=== PATIENT | male | born 1950 | race Caucasian/White ===

== ENCOUNTER 2020-08-06 01:31 | Outpatient (CLI) | payer MEDICARE, OTHER, SELFPAY ==
[2020-08-06 08:41] LABS: Abs Immature Grans 0.04 10^3/uL (0.0-0.06); Absolute Basophil Count 0.02 10^3/uL (0.0-0.2); Absolute Eosinophil Count 0.09 10^3/uL (0.0-0.7); Absolute Lymphocyte Count 1.24 10^3/uL (1.2-3.4); Absolute Monocyte Count 0.73 10^3/uL (0.1-0.8); Absolute Neutrophil Count 2.36 10^3/uL (1.2-6.7); Basophils % 0.4; HCT 45.5 % (40.0-50.0); HGB 15.6 g/dL (13.5-17.5); Immature Grans % 0.9; Lymphocytes % 27.7; MCH 29.9 pg (27.0-33.0); MCHC 34.3 % (32.0-36.0); MCV 87.2 fL (80-95); MPV 9.7 fL (8.0-11.0); Monocytes % 16.3; Neutrophils % 52.7; Nucleated RBC 0 %; Platelet Count 147 10^3/uL (130-400); RBC 5.22 10^6/uL (4.36-5.78); RDW 12.4 % (11.8-14.1); RDW-SD 39.5 fL; WBC 4.48 10^3/uL (4.4-10.8)
[2020-08-06 08:55] LABS: ALT 17 U/L (16-63); AST 19 U/L (15-37); Albumin 3.5 g/dL (3.4-5.0); Alkaline Phosphatase 58 U/L (46-116); Anion Gap 5.1 mmol/L (3-11); BUN 18 mg/dL (7-18); Bilirubin, Total 0.5 mg/dL (0.2-1.0); CO2 27.9 mmol/L (21.0-32.0); CREATININE 0.98 mg/dL (0.70-1.30); Calcium 9.3 mg/dL (8.5-10.1); Chloride 101 mmol/L (98-107); Glucose 86 mg/dL (74-106); Potassium 4.2 mmol/L (3.5-5.1); Sodium 134 mmol/L (136-145); Total Protein 9.1 g/dL (6.4-8.2)
== END 2020-08-06 01:51 ==
PROVIDERS: PCP Nurse Practitioner Family; Visit Provider Nurse Practitioner Family
DX: D69.6 Thrombocytopenia, unspecified (principal)
CPT/HCPCS: 36415; 80053; 85025

== ENCOUNTER 2020-08-20 03:34 | Outpatient (CLI) | payer MEDICARE, OTHER, SELFPAY ==
[2020-08-20 08:16] LABS: Absolute Basophil Count 0.04 10^3/uL (0.0-0.2); Absolute Eosinophil Count 0.28 10^3/uL (0.0-0.7); Absolute Lymphocyte Count 1.59 10^3/uL (1.2-3.4); Absolute Monocyte Count 0.78 10^3/uL (0.1-0.8); Absolute Neutrophil Count 3.58 10^3/uL (1.2-6.7); Basophils % 0.6; Eosinophils % 4.4; HCT 46.4 % (40.0-50.0); HGB 15.6 g/dL (13.5-17.5); Immature Grans % 1.6; MCH 29.3 pg (27.0-33.0); MCHC 33.6 % (32.0-36.0); MCV 87.2 fL (80-95); MPV 13.4 fL (8.0-11.0); Monocytes % 12.2; Neutrophils % 56.2; Nucleated RBC 0 %; RBC 5.32 10^6/uL (4.36-5.78); RDW 12.3 % (11.8-14.1); RDW-SD 38.7 fL; WBC 6.37 10^3/uL (4.4-10.8)
[2020-08-20 08:43] LABS: Diff Comment PLT Morph Reviewed; Platelet Count 28 10^3/uL (130-400); RBC Morphology Normal
== END 2020-08-20 03:54 ==
PROVIDERS: PCP Nurse Practitioner Family; Visit Provider Nurse Practitioner Family
DX: D69.3 Immune thrombocytopenic purpura (principal)
CPT/HCPCS: 36415; 85025

== ENCOUNTER 2020-09-03 03:20 | Outpatient (CLI) | payer MEDICARE, OTHER, SELFPAY ==
[2020-09-03 08:46] LABS: Abs Immature Grans 0.08 10^3/uL (0.0-0.06); Absolute Basophil Count 0.05 10^3/uL (0.0-0.2); Absolute Eosinophil Count 0.26 10^3/uL (0.0-0.7); Absolute Lymphocyte Count 1.84 10^3/uL (1.2-3.4); Absolute Monocyte Count 0.79 10^3/uL (0.1-0.8); Basophils % 0.8; Eosinophils % 4.4; HCT 46.9 % (40.0-50.0); HGB 15.8 g/dL (13.5-17.5); Immature Grans % 1.4; Lymphocytes % 31.1; MCH 29.4 pg (27.0-33.0); MCHC 33.7 % (32.0-36.0); MCV 87.3 fL (80-95); MPV 12.2 fL (8.0-11.0); Monocytes % 13.3; Nucleated RBC 0 %; RBC 5.37 10^6/uL (4.36-5.78); RDW 12.4 % (11.8-14.1); RDW-SD 39.9 fL; WBC 5.92 10^3/uL (4.4-10.8)
[2020-09-03 09:05] LABS: Diff Comment Diff Reviewed; Platelet Count 64 10^3/uL (130-400); RBC Morphology Normal
== END 2020-09-03 03:40 ==
PROVIDERS: PCP Nurse Practitioner Family; Visit Provider Nurse Practitioner Family
DX: D69.3 Immune thrombocytopenic purpura (principal)
CPT/HCPCS: 36415; 85025

== ENCOUNTER 2022-02-03 03:52 | Outpatient (CLI) | payer MEDICARE, OTHER, SELFPAY ==
[2022-02-03 08:07] LABS: Abs Immature Grans 0.88 10^3/uL (0.0-0.06); HCT 45.5 % (40.0-50.0); MCH 29.1 pg (27.0-33.0); MCV 88 fL (80-95); RBC 5.16 10^6/uL (4.36-5.78); RDW 14.1 % (11.8-14.1); RDW-SD 45.1 fL; WBC 11.93 10^3/uL (4.4-10.8)
[2022-02-03 08:20] LABS: ALT 29 U/L (16-63); AST 24 U/L (15-37); Albumin 3.6 g/dL (3.4-5.0); Alkaline Phosphatase 66 U/L (46-116); Anion Gap 2.2 mmol/L (3-11); BUN 21 mg/dL (7-18); Bilirubin, Total 0.7 mg/dL (0.2-1.0); CO2 29.8 mmol/L (21.0-32.0); Calcium 9.1 mg/dL (8.5-10.1); Chloride 105 mmol/L (98-107); Glucose 103 mg/dL (74-106); Potassium 4.3 mmol/L (3.5-5.1); Sodium 137 mmol/L (136-145)
[2022-02-03 08:51] LABS: Absolute Basophil Count 0.24 10^3/uL (0.0-0.2); Absolute Eosinophil Count 0.36 10^3/uL (0.0-0.7); Absolute Lymphocyte Count 0.95 10^3/uL (1.2-3.4); Absolute Monocyte Count 0.72 10^3/uL (0.1-0.8); Absolute Neutrophil Count 9.66 10^3/uL (1.2-6.7); Diff Comment Manual Differential; RBC Morphology Normal
[2022-02-03 08:56] LABS: Platelet Count 21 10^3/uL (130-400)
== END 2022-02-03 03:53 | disposition home or self-care (01) ==
LOC: LBO 03:52
PROVIDERS: PCP Nurse Practitioner Family; Visit Provider Internal Medicine Hematology & Oncology
DX: D69.6 Thrombocytopenia, unspecified (principal); Z86.2 Personal history of diseases of the blood and blood-forming organs and certain disorders involving the immune mechanism
CPT/HCPCS: 36415; 80053; 85025

== ENCOUNTER 2022-02-10 09:33 | Outpatient (CLI) | payer MEDICARE, OTHER, SELFPAY ==
[2022-02-10 08:44] LABS: HCT 42.7 % (40.0-50.0); HGB 14.4 g/dL (13.5-17.5); MCH 29.2 pg (27.0-33.0); MCHC 33.7 % (32.0-36.0); MCV 87 fL (80-95); RBC 4.93 10^6/uL (4.36-5.78); RDW 14.3 % (11.8-14.1); WBC 9.27 10^3/uL (4.4-10.8)
[2022-02-10 09:06] LABS: ALT 27 U/L (16-63); AST 19 U/L (15-37); Albumin 3.4 g/dL (3.4-5.0); Alkaline Phosphatase 58 U/L (46-116); Anion Gap 5.8 mmol/L (3-11); BUN 19 mg/dL (7-18); Bilirubin, Total 0.6 mg/dL (0.2-1.0); CO2 30.2 mmol/L (21.0-32.0); CREATININE 0.9 mg/dL (0.70-1.30); Calcium 8.9 mg/dL (8.5-10.1); Chloride 105 mmol/L (98-107); Glucose 112 mg/dL (74-106); Potassium 4.3 mmol/L (3.5-5.1); Sodium 141 mmol/L (136-145); Total Protein 6.7 g/dL (6.4-8.2)
[2022-02-10 09:15] LABS: Absolute Basophil Count 0.09 10^3/uL (0.0-0.2); Absolute Eosinophil Count 0.19 10^3/uL (0.0-0.7); Absolute Lymphocyte Count 0.74 10^3/uL (1.2-3.4); Absolute Monocyte Count 0.65 10^3/uL (0.1-0.8); Absolute Neutrophil Count 7.23 10^3/uL (1.2-6.7); Bands % 1; Diff Comment Manual Differential; Metamyelocytes % 3; Myelocytes % 1; Platelet Count 29 10^3/uL (130-400); RBC Morphology Normal
== END 2022-02-10 09:34 | disposition home or self-care (01) ==
PROVIDERS: PCP Nurse Practitioner Family; Visit Provider Internal Medicine Hematology & Oncology
DX: D69.6 Thrombocytopenia, unspecified (principal)
CPT/HCPCS: 36415; 80053; 85025

== ENCOUNTER 2022-02-17 02:19 | Outpatient (CLI) | payer MEDICARE, OTHER, SELFPAY ==
[2022-02-17 11:05] LABS: Abs Immature Grans 0.54 10^3/uL (0.0-0.06); Absolute Basophil Count 0.06 10^3/uL (0.0-0.2); Absolute Eosinophil Count 0.01 10^3/uL (0.0-0.7); Absolute Lymphocyte Count 0.64 10^3/uL (1.2-3.4); Absolute Monocyte Count 0.37 10^3/uL (0.1-0.8); Absolute Neutrophil Count 7.78 10^3/uL (1.2-6.7); Basophils % 0.6; Eosinophils % 0.1; HCT 44.3 % (40.0-50.0); HGB 14.7 g/dL (13.5-17.5); Immature Grans % 5.7; Lymphocytes % 6.8; MCH 29.5 pg (27.0-33.0); MCHC 33.2 % (32.0-36.0); MCV 89 fL (80-95); Monocytes % 3.9; Neutrophils % 82.9; RBC 4.98 10^6/uL (4.36-5.78); RDW 14.6 % (11.8-14.1); RDW-SD 46.8 fL
[2022-02-17 11:09] LABS: ESR 10 mm/hr (0-20)
[2022-02-17 11:13] LABS: Diff Comment Diff Reviewed; Platelet Count 28 10^3/uL (130-400); RBC Morphology Normal
[2022-02-17 11:22] LABS: C-Reactive Protein 0.06 mg/dL (0.0-0.3)
[2022-02-17 11:23] LABS: ALT 25 U/L (16-63); AST 18 U/L (15-37); Albumin 3.7 g/dL (3.4-5.0); Alkaline Phosphatase 58 U/L (46-116); Anion Gap 6.7 mmol/L (3-11); BUN 18 mg/dL (7-18); Bilirubin, Total 0.5 mg/dL (0.2-1.0); CO2 27.3 mmol/L (21.0-32.0); Calcium 8.9 mg/dL (8.5-10.1); Chloride 103 mmol/L (98-107); Glucose 165 mg/dL (74-106); Potassium 3.9 mmol/L (3.5-5.1); Sodium 137 mmol/L (136-145); Total Protein 6.9 g/dL (6.4-8.2)
== END 2022-02-17 02:20 | disposition home or self-care (01) ==
LOC: LBO 02:19
PROVIDERS: Physician Assistant Medical; PCP Nurse Practitioner Family; Visit Provider Internal Medicine Hematology & Oncology
DX: M19.90 Unspecified osteoarthritis, unspecified site (principal); D69.6 Thrombocytopenia, unspecified; Z86.2 Personal history of diseases of the blood and blood-forming organs and certain disorders involving the immune mechanism
CPT/HCPCS: 36415; 80053; 85652; 85025; 86140

== ENCOUNTER 2022-05-19 04:19 | Outpatient (CLI) | payer MEDICARE, OTHER, SELFPAY ==
[2022-05-19 14:12] LABS: Abs Immature Grans 0.14 10^3/uL (0.0-0.06); Absolute Basophil Count 0.04 10^3/uL (0.0-0.2); Absolute Eosinophil Count 0.08 10^3/uL (0.0-0.7); Absolute Lymphocyte Count 0.65 10^3/uL (1.2-3.4); Absolute Neutrophil Count 4.53 10^3/uL (1.2-6.7); Basophils % 0.7; Eosinophils % 1.3; HCT 43.7 % (40.0-50.0); HGB 14.7 g/dL (13.5-17.5); Immature Grans % 2.3; Lymphocytes % 10.6; MCH 29.8 pg (27.0-33.0); MCHC 33.6 % (32.0-36.0); MCV 89 fL (80-95); MPV 11.8 fL (8.0-11.0); Monocytes % 11.4; Neutrophils % 73.7; RBC 4.93 10^6/uL (4.36-5.78); RDW-SD 42.1 fL; WBC 6.14 10^3/uL (4.4-10.8)
[2022-05-19 14:23] LABS: Platelet Count 27 10^3/uL (130-400)
[2022-05-19 14:41] LABS: ALT 20 U/L (16-63); AST 17 U/L (15-37); Albumin 3.7 g/dL (3.4-5.0); Alkaline Phosphatase 67 U/L (46-116); Anion Gap 7.4 mmol/L (3-11); BUN 16 mg/dL (7-18); Bilirubin, Total 0.4 mg/dL (0.2-1.0); CO2 25.6 mmol/L (21.0-32.0); CREATININE 0.9 mg/dL (0.70-1.30); Calcium 9.2 mg/dL (8.5-10.1); Chloride 102 mmol/L (98-107); Estimated GFR 91.31 (mL/min/1.73m2); Glucose 174 mg/dL (74-106); Potassium 4.4 mmol/L (3.5-5.1); Sodium 135 mmol/L (136-145); Total Protein 7.3 g/dL (6.4-8.2)
== END 2022-05-19 04:20 | disposition home or self-care (01) ==
LOC: LBO 04:19
PROVIDERS: PCP Nurse Practitioner Family; Visit Provider Internal Medicine Hematology & Oncology
DX: D69.3 Immune thrombocytopenic purpura (principal)
CPT/HCPCS: 36415; 80053; 85025

== ENCOUNTER 2022-06-02 02:30 | Outpatient (CLI) | payer MEDICARE, OTHER, SELFPAY ==
[2022-06-02 12:29] LABS: Abs Immature Grans 0.38 10^3/uL (0.0-0.06); Absolute Basophil Count 0.11 10^3/uL (0.0-0.2); Absolute Eosinophil Count 0.11 10^3/uL (0.0-0.7); Absolute Monocyte Count 0.84 10^3/uL (0.1-0.8); Absolute Neutrophil Count 5.63 10^3/uL (1.2-6.7); Basophils % 1.3; Eosinophils % 1.3; HCT 44.4 % (40.0-50.0); HGB 14.5 g/dL (13.5-17.5); Immature Grans % 4.7; Lymphocytes % 13.5; MCHC 32.7 % (32.0-36.0); MCV 89 fL (80-95); MPV 9.8 fL (8.0-11.0); Monocytes % 10.3; Neutrophils % 68.9; Platelet Count 514 10^3/uL (130-400); RDW 12.7 % (11.8-14.1); RDW-SD 41.5 fL; WBC 8.17 10^3/uL (4.4-10.8)
[2022-06-02 12:48] LABS: ALT 19 U/L (16-63); AST 17 U/L (15-37); Albumin 3.8 g/dL (3.4-5.0); Alkaline Phosphatase 73 U/L (46-116); Anion Gap 5.4 mmol/L (3-11); BUN 19 mg/dL (7-18); Bilirubin, Total 0.3 mg/dL (0.2-1.0); CO2 31.6 mmol/L (21.0-32.0); CREATININE 0.9 mg/dL (0.70-1.30); Calcium 9.3 mg/dL (8.5-10.1); Chloride 102 mmol/L (98-107); Estimated GFR 91.31 (mL/min/1.73m2); Glucose 111 mg/dL (74-106); Potassium 4.4 mmol/L (3.5-5.1); Sodium 139 mmol/L (136-145); Total Protein 7.3 g/dL (6.4-8.2)
== END 2022-06-02 02:31 | disposition home or self-care (01) ==
LOC: LBO 02:31
PROVIDERS: PCP Nurse Practitioner Family; Visit Provider Internal Medicine Hematology & Oncology
DX: D69.3 Immune thrombocytopenic purpura (principal); Z86.2 Personal history of diseases of the blood and blood-forming organs and certain disorders involving the immune mechanism
CPT/HCPCS: 36415; 80053; 85025

== ENCOUNTER 2022-06-09 09:14 | Outpatient (CLI) | payer MEDICARE, OTHER, SELFPAY ==
[2022-06-09 08:44] LABS: Abs Immature Grans 0.15 10^3/uL (0.0-0.06); Absolute Basophil Count 0.05 10^3/uL (0.0-0.2); Absolute Eosinophil Count 0.13 10^3/uL (0.0-0.7); Absolute Lymphocyte Count 1.24 10^3/uL (1.2-3.4); Absolute Monocyte Count 0.85 10^3/uL (0.1-0.8); Absolute Neutrophil Count 6.17 10^3/uL (1.2-6.7); Basophils % 0.6; Eosinophils % 1.5; HCT 46.2 % (40.0-50.0); HGB 15.4 g/dL (13.5-17.5); Immature Grans % 1.7; Lymphocytes % 14.4; MCH 29.4 pg (27.0-33.0); MCHC 33.3 % (32.0-36.0); MCV 88 fL (80-95); MPV 9.9 fL (8.0-11.0); Monocytes % 9.9; Neutrophils % 71.9; Platelet Count 250 10^3/uL (130-400); RBC 5.23 10^6/uL (4.36-5.78); RDW 12.6 % (11.8-14.1); RDW-SD 41.1 fL; WBC 8.59 10^3/uL (4.4-10.8)
[2022-06-09 09:29] LABS: ALT 17 U/L (16-63); AST 17 U/L (15-37); Albumin 3.9 g/dL (3.4-5.0); Alkaline Phosphatase 70 U/L (46-116); Anion Gap 9.1 mmol/L (3-11); BUN 14 mg/dL (7-18); Bilirubin, Total 0.4 mg/dL (0.2-1.0); CO2 27.9 mmol/L (21.0-32.0); CREATININE 0.9 mg/dL (0.70-1.30); Calcium 9.4 mg/dL (8.5-10.1); Chloride 103 mmol/L (98-107); Estimated GFR 91.31 (mL/min/1.73m2); Glucose 98 mg/dL (74-106); Potassium 4.3 mmol/L (3.5-5.1); Sodium 140 mmol/L (136-145); Total Protein 7.4 g/dL (6.4-8.2)
== END 2022-06-09 09:15 | disposition home or self-care (01) ==
LOC: LBO 09:15
PROVIDERS: PCP Nurse Practitioner Family; Visit Provider Internal Medicine Hematology & Oncology
DX: Z86.2 Personal history of diseases of the blood and blood-forming organs and certain disorders involving the immune mechanism (principal)
CPT/HCPCS: 36415; 80053; 85025

== ENCOUNTER 2022-06-16 12:24 | Outpatient (CLI) | payer MEDICARE, OTHER, SELFPAY ==
[2022-06-16 08:57] LABS: Abs Immature Grans 0.16 10^3/uL (0.0-0.06); Absolute Basophil Count 0.05 10^3/uL (0.0-0.2); Absolute Eosinophil Count 0.28 10^3/uL (0.0-0.7); Absolute Monocyte Count 1.03 10^3/uL (0.1-0.8); Absolute Neutrophil Count 6.39 10^3/uL (1.2-6.7); Basophils % 0.5; Eosinophils % 3.1; Immature Grans % 1.8; Lymphocytes % 13.2; MCHC 34.1 % (32.0-36.0); MCV 88 fL (80-95); MPV 12.9 fL (8.0-11.0); Monocytes % 11.3; Neutrophils % 70.1; RDW 12.7 % (11.8-14.1); RDW-SD 40.8 fL; WBC 9.11 10^3/uL (4.4-10.8)
[2022-06-16 09:04] LABS: ALT 16 U/L (16-63); AST 15 U/L (15-37); Albumin 3.9 g/dL (3.4-5.0); Alkaline Phosphatase 64 U/L (46-116); Anion Gap 5.7 mmol/L (3-11); BUN 15 mg/dL (7-18); Bilirubin, Total 0.4 mg/dL (0.2-1.0); CO2 28.3 mmol/L (21.0-32.0); Calcium 9.2 mg/dL (8.5-10.1); Chloride 104 mmol/L (98-107); Estimated GFR 80.47 (mL/min/1.73m2); Glucose 99 mg/dL (74-106); Sodium 138 mmol/L (136-145); Total Protein 7.2 g/dL (6.4-8.2)
[2022-06-16 09:12] LABS: Platelet Count 36 10^3/uL (130-400)
== END 2022-06-16 12:25 | disposition home or self-care (01) ==
LOC: LBO 12:35
PROVIDERS: PCP Nurse Practitioner Family; Visit Provider Internal Medicine Hematology & Oncology
DX: D69.3 Immune thrombocytopenic purpura (principal); D69.6 Thrombocytopenia, unspecified
CPT/HCPCS: 36415; 80053; 85025

== ENCOUNTER 2022-06-23 02:55 | Outpatient (CLI) | payer MEDICARE, OTHER, SELFPAY ==
[2022-06-23 08:42] LABS: Abs Immature Grans 0.12 10^3/uL (0.0-0.06); Absolute Basophil Count 0.04 10^3/uL (0.0-0.2); Absolute Lymphocyte Count 0.84 10^3/uL (1.2-3.4); Absolute Monocyte Count 0.61 10^3/uL (0.1-0.8); Absolute Neutrophil Count 5.64 10^3/uL (1.2-6.7); Basophils % 0.5; Eosinophils % 1.4; HCT 45.6 % (40.0-50.0); HGB 15.1 g/dL (13.5-17.5); Immature Grans % 1.6; Lymphocytes % 11.4; MCH 29.1 pg (27.0-33.0); MCHC 33.1 % (32.0-36.0); MCV 88 fL (80-95); Monocytes % 8.3; Neutrophils % 76.8; RBC 5.19 10^6/uL (4.36-5.78); RDW-SD 42.4 fL; WBC 7.35 10^3/uL (4.4-10.8)
[2022-06-23 08:57] LABS: ALT 13 U/L (16-63); AST 17 U/L (15-37); Albumin 3.9 g/dL (3.4-5.0); Alkaline Phosphatase 70 U/L (46-116); Anion Gap 7.2 mmol/L (3-11); BUN 15 mg/dL (7-18); Bilirubin, Total 0.6 mg/dL (0.2-1.0); CO2 27.8 mmol/L (21.0-32.0); Calcium 9.3 mg/dL (8.5-10.1); Chloride 105 mmol/L (98-107); Estimated GFR 80.47 (mL/min/1.73m2); Glucose 142 mg/dL (74-106); Potassium 4.2 mmol/L (3.5-5.1); Sodium 140 mmol/L (136-145); Total Protein 7.3 g/dL (6.4-8.2)
[2022-06-23 08:59] LABS: Platelet Count 77 10^3/uL (130-400)
== END 2022-06-23 02:56 | disposition home or self-care (01) ==
LOC: LBO 02:55
PROVIDERS: PCP Nurse Practitioner Family; Visit Provider Internal Medicine Hematology & Oncology
DX: D69.3 Immune thrombocytopenic purpura (principal); Z86.2 Personal history of diseases of the blood and blood-forming organs and certain disorders involving the immune mechanism
CPT/HCPCS: 36415; 80053; 85025

== ENCOUNTER 2022-06-30 04:46 | Outpatient (CLI) | payer MEDICARE, OTHER, SELFPAY ==
[2022-06-30 08:41] LABS: Abs Immature Grans 0.22 10^3/uL (0.0-0.06); Absolute Basophil Count 0.05 10^3/uL (0.0-0.2); Absolute Eosinophil Count 0.07 10^3/uL (0.0-0.7); Absolute Lymphocyte Count 0.87 10^3/uL (1.2-3.4); Absolute Monocyte Count 0.56 10^3/uL (0.1-0.8); Absolute Neutrophil Count 6.62 10^3/uL (1.2-6.7); Basophils % 0.6; Eosinophils % 0.8; HCT 45.1 % (40.0-50.0); HGB 14.9 g/dL (13.5-17.5); Immature Grans % 2.6; Lymphocytes % 10.4; MCH 29.3 pg (27.0-33.0); MCV 89 fL (80-95); MPV 12.4 fL (8.0-11.0); Monocytes % 6.7; Neutrophils % 78.9; Platelet Count 156 10^3/uL (130-400); RBC 5.08 10^6/uL (4.36-5.78); RDW 13.2 % (11.8-14.1); RDW-SD 42.7 fL; WBC 8.39 10^3/uL (4.4-10.8)
== END 2022-06-30 04:47 | disposition home or self-care (01) ==
LOC: LBO 04:46
PROVIDERS: PCP Nurse Practitioner Family; Visit Provider Internal Medicine Hematology & Oncology
DX: D69.3 Immune thrombocytopenic purpura (principal)
CPT/HCPCS: 36415; 85025

== ENCOUNTER 2022-07-07 03:25 | Outpatient (CLI) | payer MEDICARE, OTHER, SELFPAY ==
[2022-07-07 08:33] LABS: Abs Immature Grans 0.15 10^3/uL (0.0-0.06); Absolute Basophil Count 0.07 10^3/uL (0.0-0.2); Absolute Eosinophil Count 0.14 10^3/uL (0.0-0.7); Absolute Lymphocyte Count 1.15 10^3/uL (1.2-3.4); Absolute Monocyte Count 0.67 10^3/uL (0.1-0.8); Absolute Neutrophil Count 4.93 10^3/uL (1.2-6.7); HCT 46.5 % (40.0-50.0); HGB 15.3 g/dL (13.5-17.5); Immature Grans % 2.1; Lymphocytes % 16.2; MCH 29.3 pg (27.0-33.0); MCHC 32.9 % (32.0-36.0); MCV 89 fL (80-95); MPV 12.4 fL (8.0-11.0); Monocytes % 9.4; Neutrophils % 69.3; Platelet Count 153 10^3/uL (130-400); RBC 5.22 10^6/uL (4.36-5.78); RDW 13.2 % (11.8-14.1); RDW-SD 43.3 fL; WBC 7.11 10^3/uL (4.4-10.8)
[2022-07-07 09:05] LABS: ALT 14 U/L (16-63); AST 16 U/L (15-37); Albumin 3.9 g/dL (3.4-5.0); Alkaline Phosphatase 67 U/L (46-116); Anion Gap 9.4 mmol/L (3-11); BUN 15 mg/dL (7-18); Bilirubin, Total 0.4 mg/dL (0.2-1.0); CO2 25.6 mmol/L (21.0-32.0); Calcium 9.3 mg/dL (8.5-10.1); Chloride 105 mmol/L (98-107); Estimated GFR 80.47 (mL/min/1.73m2); Glucose 146 mg/dL (74-106); Potassium 4.2 mmol/L (3.5-5.1); Sodium 140 mmol/L (136-145); Total Protein 7.1 g/dL (6.4-8.2)
== END 2022-07-07 03:26 | disposition home or self-care (01) ==
LOC: LBO 03:25
PROVIDERS: PCP Nurse Practitioner Family; Visit Provider Internal Medicine Hematology & Oncology
DX: D69.3 Immune thrombocytopenic purpura (principal); Z86.2 Personal history of diseases of the blood and blood-forming organs and certain disorders involving the immune mechanism
CPT/HCPCS: 36415; 80053; 85025

== ENCOUNTER 2022-07-28 01:33 | Outpatient (CLI) | payer MEDICARE, OTHER, SELFPAY ==
[2022-07-28 08:33] LABS: Abs Immature Grans 0.19 10^3/uL (0.0-0.06); Absolute Basophil Count 0.06 10^3/uL (0.0-0.2); Absolute Eosinophil Count 0.12 10^3/uL (0.0-0.7); Absolute Lymphocyte Count 1.06 10^3/uL (1.2-3.4); Absolute Monocyte Count 0.59 10^3/uL (0.1-0.8); Absolute Neutrophil Count 5.72 10^3/uL (1.2-6.7); Basophils % 0.8; Eosinophils % 1.6; HCT 46.4 % (40.0-50.0); HGB 15.5 g/dL (13.5-17.5); Immature Grans % 2.5; Lymphocytes % 13.7; MCH 29.2 pg (27.0-33.0); MCHC 33.4 % (32.0-36.0); MCV 88 fL (80-95); MPV 11.9 fL (8.0-11.0); Monocytes % 7.6; Neutrophils % 73.8; Platelet Count 146 10^3/uL (130-400); RDW 13.4 % (11.8-14.1); WBC 7.74 10^3/uL (4.4-10.8)
[2022-07-28 08:47] LABS: ALT 19 U/L (16-63); AST 17 U/L (15-37); Albumin 3.9 g/dL (3.4-5.0); Alkaline Phosphatase 69 U/L (46-116); Anion Gap 8.2 mmol/L (3-11); BUN 18 mg/dL (7-18); Bilirubin, Total 0.5 mg/dL (0.2-1.0); CO2 27.8 mmol/L (21.0-32.0); Calcium 9.3 mg/dL (8.5-10.1); Chloride 103 mmol/L (98-107); Estimated GFR 80.47 (mL/min/1.73m2); Glucose 127 mg/dL (74-106); Potassium 4.4 mmol/L (3.5-5.1); Sodium 139 mmol/L (136-145); Total Protein 7.2 g/dL (6.4-8.2)
== END 2022-07-28 01:34 | disposition home or self-care (01) ==
LOC: LBO 01:33
PROVIDERS: PCP Nurse Practitioner Family; Visit Provider Internal Medicine Hematology & Oncology
DX: D69.3 Immune thrombocytopenic purpura (principal)
CPT/HCPCS: 36415; 80053; 85025

== ENCOUNTER 2022-08-25 11:46 | Outpatient (CLI) | payer MEDICARE, OTHER, SELFPAY ==
[2022-08-25 11:55] LABS: Abs Immature Grans 0.13 10^3/uL (0.0-0.06); Absolute Basophil Count 0.07 10^3/uL (0.0-0.2); Absolute Eosinophil Count 0.26 10^3/uL (0.0-0.7); Absolute Lymphocyte Count 1.43 10^3/uL (1.2-3.4); Absolute Neutrophil Count 4.82 10^3/uL (1.2-6.7); Basophils % 0.9; Eosinophils % 3.4; HCT 46.8 % (40.0-50.0); HGB 15.7 g/dL (13.5-17.5); Immature Grans % 1.7; Lymphocytes % 18.8; MCH 29.2 pg (27.0-33.0); MCHC 33.5 % (32.0-36.0); MCV 87 fL (80-95); MPV 12.9 fL (8.0-11.0); Monocytes % 11.8; Neutrophils % 63.4; Platelet Count 107 10^3/uL (130-400); RBC 5.38 10^6/uL (4.36-5.78); RDW 13.4 % (11.8-14.1); RDW-SD 42.6 fL; WBC 7.61 10^3/uL (4.4-10.8)
== END 2022-08-25 11:47 | disposition home or self-care (01) ==
LOC: LBO 11:48
PROVIDERS: PCP Nurse Practitioner Family; Visit Provider Internal Medicine Hematology & Oncology
DX: D69.3 Immune thrombocytopenic purpura (principal)
CPT/HCPCS: 36415; 85025

== ENCOUNTER 2022-09-22 03:15 | Outpatient (CLI) | payer MEDICARE, OTHER, SELFPAY ==
[2022-09-22 07:45] LABS: Absolute Basophil Count 0.06 10^3/uL (0.0-0.2); Absolute Eosinophil Count 0.23 10^3/uL (0.0-0.7); Absolute Lymphocyte Count 1.66 10^3/uL (1.2-3.4); Absolute Monocyte Count 0.74 10^3/uL (0.1-0.8); Absolute Neutrophil Count 4.12 10^3/uL (1.2-6.7); Basophils % 0.9; Eosinophils % 3.3; HCT 45.4 % (40.0-50.0); HGB 15.1 g/dL (13.5-17.5); Immature Grans % 1.4; MCHC 33.3 % (32.0-36.0); MCV 87 fL (80-95); MPV 11.8 fL (8.0-11.0); Monocytes % 10.7; Neutrophils % 59.7; Platelet Count 145 10^3/uL (130-400); RDW 13.2 % (11.8-14.1); RDW-SD 42.2 fL; WBC 6.91 10^3/uL (4.4-10.8)
[2022-09-22 07:58] LABS: ALT 17 U/L (16-63); AST 19 U/L (15-37); Albumin 3.8 g/dL (3.4-5.0); Alkaline Phosphatase 69 U/L (46-116); Anion Gap 8.1 mmol/L (3-11); BUN 17 mg/dL (7-18); Bilirubin, Total 0.5 mg/dL (0.2-1.0); CO2 26.9 mmol/L (21.0-32.0); CREATININE 1.1 mg/dL (0.70-1.30); Calcium 9.2 mg/dL (8.5-10.1); Chloride 107 mmol/L (98-107); Estimated GFR 71.32 (mL/min/1.73m2); Glucose 142 mg/dL (74-106); Potassium 4.1 mmol/L (3.5-5.1); Sodium 142 mmol/L (136-145); Total Protein 7.1 g/dL (6.4-8.2)
== END 2022-09-22 03:16 | disposition home or self-care (01) ==
LOC: LBO 03:15
PROVIDERS: PCP Nurse Practitioner Family; Visit Provider Internal Medicine Hematology & Oncology
DX: D69.3 Immune thrombocytopenic purpura (principal); Z86.2 Personal history of diseases of the blood and blood-forming organs and certain disorders involving the immune mechanism
CPT/HCPCS: 36415; 80053; 85025

== ENCOUNTER 2022-10-20 03:02 | Outpatient (CLI) | payer MEDICARE, OTHER, SELFPAY ==
[2022-10-20 07:39] LABS: Abs Immature Grans 0.09 10^3/uL (0.0-0.06); Absolute Basophil Count 0.04 10^3/uL (0.0-0.2); Absolute Eosinophil Count 0.24 10^3/uL (0.0-0.7); Absolute Lymphocyte Count 1.64 10^3/uL (1.2-3.4); Absolute Monocyte Count 0.82 10^3/uL (0.1-0.8); Absolute Neutrophil Count 4.31 10^3/uL (1.2-6.7); Basophils % 0.6; Eosinophils % 3.4; HCT 44.5 % (40.0-50.0); HGB 15.1 g/dL (13.5-17.5); Immature Grans % 1.3; MCH 29.7 pg (27.0-33.0); MCHC 33.9 % (32.0-36.0); MCV 87 fL (80-95); MPV 11.7 fL (8.0-11.0); Monocytes % 11.5; Neutrophils % 60.2; Platelet Count 139 10^3/uL (130-400); RBC 5.09 10^6/uL (4.36-5.78); RDW-SD 41.7 fL; WBC 7.14 10^3/uL (4.4-10.8)
[2022-10-20 07:57] LABS: ALT 16 U/L (16-63); AST 16 U/L (15-37); Albumin 3.8 g/dL (3.4-5.0); Alkaline Phosphatase 72 U/L (46-116); Anion Gap 9.4 mmol/L (3-11); BUN 14 mg/dL (7-18); Bilirubin, Total 0.5 mg/dL (0.2-1.0); CO2 26.6 mmol/L (21.0-32.0); CREATININE 0.9 mg/dL (0.70-1.30); Calcium 9.5 mg/dL (8.5-10.1); Calculated LDL 113 mg/dL (<100); Chloride 104 mmol/L (98-107); Cholesterol 198 mg/dL (<200); Estimated GFR 90.74 (mL/min/1.73m2); Glucose 117 mg/dL (74-106); HDL Cholesterol 55 mg/dL (40-60); Potassium 4.3 mmol/L (3.5-5.1); Sodium 140 mmol/L (136-145); Total Protein 7.1 g/dL (6.4-8.2); Triglyceride 153 mg/dL (<150)
[2022-10-21 09:51] LABS: Hepatitis C Ab w Rflx HCV PCR Negative (Negative)
== END 2022-10-20 03:03 | disposition home or self-care (01) ==
LOC: LBO 03:02
PROVIDERS: PCP Nurse Practitioner Family; Visit Provider Internal Medicine Hematology & Oncology
DX: D69.3 Immune thrombocytopenic purpura (principal); E78.5 Hyperlipidemia, unspecified; Z11.59 Encounter for screening for other viral diseases
CPT/HCPCS: 36415; 80053; 80061; 86803; 85025

== ENCOUNTER 2022-11-16 08:03 | Outpatient (CLI) | payer MEDICARE, OTHER, SELFPAY ==
[2022-11-16 08:00] LABS: Abs Immature Grans 0.17 10^3/uL (0.0-0.06); Absolute Basophil Count 0.08 10^3/uL (0.0-0.2); Absolute Eosinophil Count 0.36 10^3/uL (0.0-0.7); Absolute Lymphocyte Count 1.57 10^3/uL (1.2-3.4); Absolute Monocyte Count 0.98 10^3/uL (0.1-0.8); Absolute Neutrophil Count 5.07 10^3/uL (1.2-6.7); Eosinophils % 4.4; HCT 45.2 % (40.0-50.0); HGB 15.3 g/dL (13.5-17.5); Immature Grans % 2.1; Lymphocytes % 19.1; MCH 29.8 pg (27.0-33.0); MCHC 33.8 % (32.0-36.0); MCV 88 fL (80-95); MPV 12.5 fL (8.0-11.0); Monocytes % 11.9; Neutrophils % 61.5; RBC 5.13 10^6/uL (4.36-5.78); RDW 13.2 % (11.8-14.1); RDW-SD 42.7 fL; WBC 8.23 10^3/uL (4.4-10.8)
[2022-11-16 08:14] LABS: Platelet Count 90 10^3/uL (130-400)
== END 2022-11-16 08:04 | disposition home or self-care (01) ==
LOC: LBO 08:04
PROVIDERS: PCP Nurse Practitioner Family; Visit Provider Internal Medicine Hematology & Oncology
DX: D69.3 Immune thrombocytopenic purpura (principal)
CPT/HCPCS: 36415; 85025

== ENCOUNTER 2023-01-19 04:56 | Outpatient (CLI) | payer MEDICARE, OTHER, SELFPAY ==
[2023-01-19 09:18] LABS: Abs Immature Grans 0.14 10^3/uL (0.0-0.06); Absolute Basophil Count 0.07 10^3/uL (0.0-0.2); Absolute Eosinophil Count 0.18 10^3/uL (0.0-0.7); Absolute Lymphocyte Count 1.14 10^3/uL (1.2-3.4); Absolute Monocyte Count 0.65 10^3/uL (0.1-0.8); Absolute Neutrophil Count 4.39 10^3/uL (1.2-6.7); Basophils % 1.1; Eosinophils % 2.7; HGB 15.9 g/dL (13.5-17.5); Immature Grans % 2.1; Lymphocytes % 17.4; MCH 30.1 pg (27.0-33.0); MCHC 33.8 % (32.0-36.0); MCV 89 fL (80-95); MPV 12.3 fL (8.0-11.0); Monocytes % 9.9; Neutrophils % 66.8; Platelet Count 135 10^3/uL (130-400); RBC 5.28 10^6/uL (4.36-5.78); RDW 13.2 % (11.8-14.1); RDW-SD 42.7 fL; WBC 6.57 10^3/uL (4.4-10.8)
[2023-01-19 09:43] LABS: ALT 22 U/L (16-63); AST 20 U/L (15-37); Albumin 3.8 g/dL (3.4-5.0); Alkaline Phosphatase 65 U/L (46-116); Anion Gap 6.8 mmol/L (3-11); BUN 16 mg/dL (7-18); Bilirubin, Total 0.5 mg/dL (0.2-1.0); CO2 28.2 mmol/L (21.0-32.0); Calcium 9.1 mg/dL (8.5-10.1); Chloride 105 mmol/L (98-107); Estimated GFR 79.97 (mL/min/1.73m2); Glucose 118 mg/dL (74-106); Potassium 4.4 mmol/L (3.5-5.1); Sodium 140 mmol/L (136-145); Total Protein 7.1 g/dL (6.4-8.2)
== END 2023-01-19 04:57 | disposition home or self-care (01) ==
LOC: LBO 04:56
PROVIDERS: PCP Nurse Practitioner Family; Visit Provider Internal Medicine Hematology & Oncology
DX: D69.3 Immune thrombocytopenic purpura (principal)
CPT/HCPCS: 36415; 80053; 85025

== ENCOUNTER 2023-04-27 04:22 | Outpatient (CLI) | payer MEDICARE, OTHER, SELFPAY ==
[2023-04-27 08:29] LABS: Abs Immature Grans 0.21 10^3/uL (0.0-0.06); Absolute Basophil Count 0.08 10^3/uL (0.0-0.2); Absolute Lymphocyte Count 1.28 10^3/uL (1.2-3.4); Absolute Monocyte Count 0.66 10^3/uL (0.1-0.8); Absolute Neutrophil Count 4.14 10^3/uL (1.2-6.7); Basophils % 1.2; HGB 16.4 g/dL (13.5-17.5); Immature Grans % 3.2; Lymphocytes % 19.5; MCH 30.3 pg (27.0-33.0); MCHC 34.2 % (32.0-36.0); MCV 89 fL (80-95); Neutrophils % 63.1; Platelet Count 135 10^3/uL (130-400); RBC 5.42 10^6/uL (4.36-5.78); RDW-SD 42.4 fL; WBC 6.57 10^3/uL (4.4-10.8)
== END 2023-04-27 04:23 | disposition home or self-care (01) ==
LOC: LBO 04:22
PROVIDERS: PCP Nurse Practitioner Family; Visit Provider Internal Medicine Hematology & Oncology
DX: D69.3 Immune thrombocytopenic purpura (principal)
CPT/HCPCS: 36415; 85025

== ENCOUNTER 2023-05-25 04:57 | Outpatient (CLI) | payer MEDICARE, OTHER, SELFPAY ==
[2023-05-25 12:07] LABS: Abs Immature Grans 0.15 10^3/uL (0.0-0.06); Absolute Basophil Count 0.07 10^3/uL (0.0-0.2); Absolute Eosinophil Count 0.22 10^3/uL (0.0-0.7); Absolute Lymphocyte Count 1.35 10^3/uL (1.2-3.4); Absolute Monocyte Count 0.96 10^3/uL (0.1-0.8); Absolute Neutrophil Count 5.74 10^3/uL (1.2-6.7); Basophils % 0.8; Eosinophils % 2.6; HCT 44.6 % (40.0-50.0); HGB 15.7 g/dL (13.5-17.5); Immature Grans % 1.8; Lymphocytes % 15.9; MCH 30.8 pg (27.0-33.0); MCHC 35.2 % (32.0-36.0); MCV 88 fL (80-95); Monocytes % 11.3; Neutrophils % 67.6; RBC 5.09 10^6/uL (4.36-5.78); RDW-SD 41.4 fL; WBC 8.49 10^3/uL (4.4-10.8)
[2023-05-25 12:15] LABS: Diff Comment Diff Reviewed; Platelet Count 60 10^3/uL (130-400); RBC Morphology Normal
== END 2023-05-25 04:58 | disposition home or self-care (01) ==
LOC: LBO 04:57
PROVIDERS: PCP Nurse Practitioner Family; Visit Provider Internal Medicine Hematology & Oncology
DX: D69.3 Immune thrombocytopenic purpura (principal)
CPT/HCPCS: 36415; 85025

== ENCOUNTER 2023-06-22 02:56 | Outpatient (CLI) | payer MEDICARE, OTHER, SELFPAY ==
[2023-06-22 12:44] LABS: Abs Immature Grans 0.13 10^3/uL (0.0-0.06); Absolute Basophil Count 0.05 10^3/uL (0.0-0.2); Absolute Eosinophil Count 0.19 10^3/uL (0.0-0.7); Absolute Lymphocyte Count 1.53 10^3/uL (1.2-3.4); Absolute Monocyte Count 0.86 10^3/uL (0.1-0.8); Absolute Neutrophil Count 5.28 10^3/uL (1.2-6.7); Basophils % 0.6; Eosinophils % 2.4; HCT 44.5 % (40.0-50.0); HGB 15.6 g/dL (13.5-17.5); Immature Grans % 1.6; MCHC 35.1 % (32.0-36.0); MCV 88 fL (80-95); MPV 12.8 fL (8.0-11.0); Monocytes % 10.7; Neutrophils % 65.7; RBC 5.04 10^6/uL (4.36-5.78); RDW 13.2 % (11.8-14.1); RDW-SD 42.8 fL; WBC 8.04 10^3/uL (4.4-10.8)
[2023-06-22 13:03] LABS: Diff Comment PLT Morph Reviewed; Platelet Count 72 10^3/uL (130-400); RBC Morphology Normal
== END 2023-06-22 02:57 | disposition home or self-care (01) ==
PROVIDERS: PCP Nurse Practitioner Family; Visit Provider Internal Medicine Hematology & Oncology
DX: D69.3 Immune thrombocytopenic purpura (principal)
CPT/HCPCS: 36415; 85025

== ENCOUNTER 2023-07-27 04:19 | Outpatient (CLI) | payer MEDICARE, OTHER, SELFPAY ==
[2023-07-27 10:58] LABS: Abs Immature Grans 0.18 10^3/uL (0.0-0.06); Absolute Basophil Count 0.05 10^3/uL (0.0-0.2); Absolute Eosinophil Count 0.16 10^3/uL (0.0-0.7); Absolute Lymphocyte Count 1.16 10^3/uL (1.2-3.4); Absolute Monocyte Count 0.69 10^3/uL (0.1-0.8); Absolute Neutrophil Count 4.87 10^3/uL (1.2-6.7); Basophils % 0.7; Eosinophils % 2.3; HCT 46.4 % (40.0-50.0); HGB 15.9 g/dL (13.5-17.5); Immature Grans % 2.5; Lymphocytes % 16.3; MCH 30.5 pg (27.0-33.0); MCHC 34.3 % (32.0-36.0); MCV 89 fL (80-95); Monocytes % 9.7; Neutrophils % 68.5; RBC 5.22 10^6/uL (4.36-5.78); RDW 13.1 % (11.8-14.1); RDW-SD 42.5 fL; WBC 7.11 10^3/uL (4.4-10.8)
[2023-07-27 11:10] LABS: Platelet Count 95 10^3/uL (130-400)
[2023-07-27 11:11] LABS: Diff Comment Diff Reviewed; RBC Morphology Normal
== END 2023-07-27 04:20 | disposition home or self-care (01) ==
LOC: LBO 04:19
PROVIDERS: PCP Nurse Practitioner Family; Visit Provider Internal Medicine Hematology & Oncology
DX: D69.3 Immune thrombocytopenic purpura (principal)
CPT/HCPCS: 36415; 85025

== ENCOUNTER 2023-09-28 02:04 | Outpatient (CLI) | payer MEDICARE, OTHER, SELFPAY ==
[2023-09-28 07:29] LABS: Absolute Basophil Count 0.06 10^3/uL (0.0-0.2); Absolute Eosinophil Count 0.25 10^3/uL (0.0-0.7); Absolute Lymphocyte Count 1.29 10^3/uL (1.2-3.4); Absolute Monocyte Count 0.69 10^3/uL (0.1-0.8); Absolute Neutrophil Count 3.46 10^3/uL (1.2-6.7); Eosinophils % 4.3; HCT 44.7 % (40.0-50.0); HGB 15.5 g/dL (13.5-17.5); Immature Grans % 1.7; Lymphocytes % 22.1; MCH 30.5 pg (27.0-33.0); MCHC 34.7 % (32.0-36.0); MCV 88 fL (80-95); MPV 12.3 fL (8.0-11.0); Monocytes % 11.8; Neutrophils % 59.1; RBC 5.09 10^6/uL (4.36-5.78); RDW-SD 41.7 fL; WBC 5.85 10^3/uL (4.4-10.8)
[2023-09-28 08:11] LABS: Diff Comment Diff Reviewed; Platelet Count 96 10^3/uL (130-400); RBC Morphology Normal
== END 2023-09-28 02:05 | disposition home or self-care (01) ==
LOC: LBO 02:04
PROVIDERS: PCP Nurse Practitioner Family; Visit Provider Internal Medicine Hematology & Oncology
DX: D69.3 Immune thrombocytopenic purpura (principal)
CPT/HCPCS: 36415; 85025

== ENCOUNTER 2023-11-23 05:02 | Outpatient (CLI) | payer MEDICARE, OTHER, SELFPAY ==
[2023-11-23 13:31] LABS: Abs Immature Grans 0.13 10^3/uL (0.0-0.06); Absolute Basophil Count 0.06 10^3/uL (0.0-0.2); Absolute Eosinophil Count 0.21 10^3/uL (0.0-0.7); Absolute Lymphocyte Count 1.36 10^3/uL (1.2-3.4); Absolute Monocyte Count 0.78 10^3/uL (0.1-0.8); Absolute Neutrophil Count 4.23 10^3/uL (1.2-6.7); Basophils % 0.9; Eosinophils % 3.1; HCT 44.1 % (40.0-50.0); HGB 15.1 g/dL (13.5-17.5); Immature Grans % 1.9; Lymphocytes % 20.1; MCH 30.4 pg (27.0-33.0); MCHC 34.2 % (32.0-36.0); MCV 89 fL (80-95); Monocytes % 11.5; Neutrophils % 62.5; RBC 4.96 10^6/uL (4.36-5.78); RDW 12.9 % (11.8-14.1); RDW-SD 42.5 fL; WBC 6.77 10^3/uL (4.4-10.8)
[2023-11-23 13:46] LABS: ALT 17 U/L (16-63); AST 16 U/L (15-37); Albumin 3.8 g/dL (3.4-5.0); Alkaline Phosphatase 63 U/L (46-116); Anion Gap 9.1 mmol/L (3-11); BUN 17 mg/dL (7-18); Bilirubin, Total 0.4 mg/dL (0.2-1.0); CO2 26.9 mmol/L (21.0-32.0); Calcium 9.1 mg/dL (8.5-10.1); Calculated LDL 89 mg/dL (<100); Chloride 105 mmol/L (98-107); Cholesterol 203 mg/dL (<200); Estimated GFR 79.47 (mL/min/1.73m2); Glucose 144 mg/dL (74-106); HDL Cholesterol 59 mg/dL (40-60); Potassium 4.3 mmol/L (3.5-5.1); Sodium 141 mmol/L (136-145); Total Protein 6.8 g/dL (6.4-8.2); Triglyceride 275 mg/dL (<150)
[2023-11-23 13:53] LABS: Diff Comment Diff Reviewed; Platelet Count 64 10^3/uL (130-400); RBC Morphology Normal
== END 2023-11-23 05:03 | disposition home or self-care (01) ==
LOC: LBO 05:02
PROVIDERS: PCP Nurse Practitioner Family; Visit Provider Internal Medicine Hematology & Oncology
DX: D69.3 Immune thrombocytopenic purpura (principal); E78.5 Hyperlipidemia, unspecified
CPT/HCPCS: 36415; 80053; 80061; 85025

== ENCOUNTER 2023-12-21 04:57 | Outpatient (CLI) | payer MEDICARE, OTHER, SELFPAY ==
[2023-12-21 08:39] LABS: Abs Immature Grans 0.13 10^3/uL (0.0-0.06); Absolute Basophil Count 0.06 10^3/uL (0.0-0.2); Absolute Eosinophil Count 0.14 10^3/uL (0.0-0.7); Absolute Lymphocyte Count 1.14 10^3/uL (1.2-3.4); Absolute Monocyte Count 0.75 10^3/uL (0.1-0.8); Absolute Neutrophil Count 5.36 10^3/uL (1.2-6.7); Basophils % 0.8 %; Eosinophils % 1.8 %; HCT 46.7 % (40.0-50.0); HGB 15.7 g/dL (13.5-17.5); Immature Grans % 1.7 %; MCH 30.7 pg (27.0-33.0); MCHC 33.6 % (32.0-36.0); MCV 91 fL (80-95); Monocytes % 9.9 %; Neutrophils % 70.8 %; RBC 5.12 10^6/uL (4.36-5.78); RDW 12.8 % (11.8-14.1); RDW-SD 42.1 fL; WBC 7.58 10^3/uL (4.4-10.8)
[2023-12-21 08:52] LABS: Platelet Count 66 10^3/uL (130-400)
[2023-12-21 08:53] LABS: Diff Comment PLT Morph Reviewed; RBC Morphology Normal
== END 2023-12-21 04:58 | disposition home or self-care (01) ==
LOC: LBO 04:57
PROVIDERS: PCP Nurse Practitioner Family; Visit Provider Internal Medicine Hematology & Oncology
DX: D69.3 Immune thrombocytopenic purpura (principal)
CPT/HCPCS: 36415; 85025

== ENCOUNTER 2024-01-25 05:05 | Outpatient (CLI) | payer MEDICARE, OTHER, SELFPAY ==
[2024-01-25 13:19] LABS: Abs Immature Grans 0.13 10^3/uL (0.0-0.06); Absolute Basophil Count 0.06 10^3/uL (0.0-0.2); Absolute Eosinophil Count 0.15 10^3/uL (0.0-0.7); Absolute Lymphocyte Count 1.56 10^3/uL (1.2-3.4); Absolute Monocyte Count 0.79 10^3/uL (0.1-0.8); Absolute Neutrophil Count 4.65 10^3/uL (1.2-6.7); Basophils % 0.8 %; HCT 45.6 % (40.0-50.0); HGB 15.5 g/dL (13.5-17.5); Immature Grans % 1.8 %; Lymphocytes % 21.3 %; MCH 30.1 pg (27.0-33.0); MCV 89 fL (80-95); MPV 12.7 fL (8.0-11.0); Monocytes % 10.8 %; Neutrophils % 63.3 %; RBC 5.15 10^6/uL (4.36-5.78); RDW 12.6 % (11.8-14.1); RDW-SD 41.3 fL; WBC 7.34 10^3/uL (4.4-10.8)
[2024-01-25 13:37] LABS: ALT 18 U/L (16-63); AST 19 U/L (15-37); Alkaline Phosphatase 66 U/L (46-116); Anion Gap 6.2 mmol/L (3-11); BUN 15 mg/dL (7-18); Bilirubin, Total 0.6 mg/dL (0.2-1.0); CO2 27.8 mmol/L (21.0-32.0); CREATININE 0.9 mg/dL (0.70-1.30); Calcium 9.1 mg/dL (8.5-10.1); Chloride 105 mmol/L (98-107); Estimated GFR 90.18 (mL/min/1.73m2); Glucose 126 mg/dL (74-106); Platelet Count 99 10^3/uL (130-400); Potassium 4.3 mmol/L (3.5-5.1); Sodium 139 mmol/L (136-145); Total Protein 7.2 g/dL (6.4-8.2)
[2024-01-25 13:38] LABS: Diff Comment PLT Morph Reviewed; RBC Morphology Normal
== END 2024-01-25 05:06 | disposition home or self-care (01) ==
PROVIDERS: PCP Nurse Practitioner Family; Visit Provider Nurse Practitioner Family
DX: D69.6 Thrombocytopenia, unspecified (principal)
CPT/HCPCS: 36415; 80053; 85025

== ENCOUNTER 2024-02-23 11:01 | Outpatient (CLI) | payer MEDICARE, OTHER, SELFPAY ==
[2024-02-23 14:56] LABS: Abs Immature Grans 0.15 10^3/uL (0.0-0.06); Absolute Basophil Count 0.08 10^3/uL (0.0-0.2); Absolute Eosinophil Count 0.17 10^3/uL (0.0-0.7); Absolute Lymphocyte Count 1.62 10^3/uL (1.2-3.4); Absolute Monocyte Count 0.76 10^3/uL (0.1-0.8); Absolute Neutrophil Count 4.87 10^3/uL (1.2-6.7); Eosinophils % 2.2 %; HCT 45.1 % (40.0-50.0); HGB 15.3 g/dL (13.5-17.5); Lymphocytes % 21.2 %; MCH 30.4 pg (27.0-33.0); MCHC 33.9 % (32.0-36.0); MCV 90 fL (80-95); Monocytes % 9.9 %; Neutrophils % 63.7 %; RBC 5.04 10^6/uL (4.36-5.78); RDW 12.9 % (11.8-14.1); WBC 7.65 10^3/uL (4.4-10.8)
[2024-02-23 15:14] LABS: Platelet Count 71 10^3/uL (130-400)
== END 2024-02-23 11:02 | disposition home or self-care (01) ==
LOC: LBO 11:06
PROVIDERS: PCP Nurse Practitioner Family; Visit Provider Nurse Practitioner Family
DX: D69.6 Thrombocytopenia, unspecified (principal)
CPT/HCPCS: 36415; 85025

== ENCOUNTER 2024-03-21 15:09 | Outpatient (CLI) | payer MEDICARE, OTHER, SELFPAY ==
[2024-03-21 10:46] LABS: Abs Immature Grans 0.23 10^3/uL (0.0-0.06); Absolute Basophil Count 0.07 10^3/uL (0.0-0.2); Absolute Eosinophil Count 0.06 10^3/uL (0.0-0.7); Absolute Lymphocyte Count 1.29 10^3/uL (1.2-3.4); Absolute Monocyte Count 0.69 10^3/uL (0.1-0.8); Absolute Neutrophil Count 5.66 10^3/uL (1.2-6.7); Basophils % 0.9 %; Eosinophils % 0.8 %; HCT 47.1 % (40.0-50.0); Immature Grans % 2.9 %; Lymphocytes % 16.1 %; MCH 30.4 pg (27.0-33.0); MCV 89 fL (80-95); MPV 13.5 fL (8.0-11.0); Monocytes % 8.6 %; Neutrophils % 70.7 %; RBC 5.27 10^6/uL (4.36-5.78); RDW 12.9 % (11.8-14.1)
[2024-03-21 11:05] LABS: ALT 16 U/L (16-63); AST 17 U/L (15-37); Albumin 4.1 g/dL (3.4-5.0); Alkaline Phosphatase 70 U/L (46-116); Anion Gap 8.7 mmol/L (3-11); BUN 14 mg/dL (7-18); Bilirubin, Total 0.59 mg/dL (0.2-1.0); CO2 26.3 mmol/L (21.0-32.0); Calcium 9.2 mg/dL (8.5-10.1); Chloride 105 mmol/L (98-107); Estimated GFR 79.47 (mL/min/1.73m2); Glucose 107 mg/dL (74-106); Potassium 4.6 mmol/L (3.5-5.1); Sodium 140 mmol/L (136-145); Total Protein 7.4 g/dL (6.4-8.2)
[2024-03-21 11:25] LABS: Diff Comment Diff Reviewed; Platelet Count 69 10^3/uL (130-400); RBC Morphology Normal
== END 2024-03-21 15:10 | disposition home or self-care (01) ==
LOC: LBO 15:15
PROVIDERS: PCP Nurse Practitioner Family; Visit Provider Nurse Practitioner Family
DX: D69.6 Thrombocytopenia, unspecified (principal)
CPT/HCPCS: 36415; 80053; 85025

== ENCOUNTER 2024-04-25 11:11 | Outpatient (CLI) | payer MEDICARE, OTHER, SELFPAY ==
[2024-04-25 11:23] LABS: Abs Immature Grans 0.27 10^3/uL (0.0-0.06); Absolute Basophil Count 0.08 10^3/uL (0.0-0.2); Absolute Eosinophil Count 0.15 10^3/uL (0.0-0.7); Absolute Lymphocyte Count 1.46 10^3/uL (1.2-3.4); Absolute Monocyte Count 0.79 10^3/uL (0.1-0.8); Absolute Neutrophil Count 5.06 10^3/uL (1.2-6.7); Eosinophils % 1.9 %; HCT 46.6 % (40.0-50.0); HGB 15.8 g/dL (13.5-17.5); Immature Grans % 3.5 %; Lymphocytes % 18.7 %; MCH 30.3 pg (27.0-33.0); MCHC 33.9 % (32.0-36.0); MCV 89 fL (80-95); Monocytes % 10.1 %; Neutrophils % 64.8 %; Platelet Count 75 10^3/uL (130-400); RBC 5.22 10^6/uL (4.36-5.78); RDW 12.8 % (11.8-14.1); RDW-SD 41.9 fL; WBC 7.81 10^3/uL (4.4-10.8)
[2024-04-25 11:48] LABS: ALT 15 U/L (16-63); AST 18 U/L (15-37); Albumin 4.1 g/dL (3.4-5.0); Alkaline Phosphatase 67 U/L (46-116); Anion Gap 7.2 mmol/L (3-11); BUN 13 mg/dL (7-18); Bilirubin, Total 0.64 mg/dL (0.2-1.0); CO2 26.8 mmol/L (21.0-32.0); CREATININE 0.9 mg/dL (0.70-1.30); Calcium 9.5 mg/dL (8.5-10.1); Chloride 100 mmol/L (98-107); Estimated GFR 90.18 (mL/min/1.73m2); Glucose 96 mg/dL (74-106); Potassium 4.2 mmol/L (3.5-5.1); Sodium 134 mmol/L (136-145); Total Protein 7.4 g/dL (6.4-8.2)
== END 2024-04-25 11:12 | disposition home or self-care (01) ==
LOC: LBO 11:12
PROVIDERS: PCP Nurse Practitioner Family; Visit Provider Nurse Practitioner Family
DX: D69.6 Thrombocytopenia, unspecified (principal)
CPT/HCPCS: 36415; 80053; 85025

== ENCOUNTER 2024-05-23 01:55 | Outpatient (CLI) | payer MEDICARE, OTHER, SELFPAY ==
[2024-05-23 10:47] LABS: Abs Immature Grans 0.12 10^3/uL (0.0-0.06); Absolute Basophil Count 0.06 10^3/uL (0.0-0.2); Absolute Eosinophil Count 0.12 10^3/uL (0.0-0.7); Absolute Lymphocyte Count 0.97 10^3/uL (1.2-3.4); Absolute Monocyte Count 0.69 10^3/uL (0.1-0.8); Basophils % 0.9 %; Eosinophils % 1.9 %; HCT 45.6 % (40.0-50.0); HGB 15.4 g/dL (13.5-17.5); Immature Grans % 1.9 %; Lymphocytes % 15.3 %; MCH 30.4 pg (27.0-33.0); MCHC 33.8 % (32.0-36.0); MCV 90 fL (80-95); MPV 12.4 fL (8.0-11.0); Monocytes % 10.8 %; Neutrophils % 69.2 %; RBC 5.06 10^6/uL (4.36-5.78); RDW 12.9 % (11.8-14.1); RDW-SD 42.2 fL; WBC 6.36 10^3/uL (4.4-10.8)
[2024-05-23 10:58] LABS: Diff Comment Diff Reviewed; Platelet Count 98 10^3/uL (130-400); RBC Morphology Normal
[2024-05-23 11:04] LABS: ALT 18 U/L (16-63); AST 20 U/L (15-37); Albumin 3.9 g/dL (3.4-5.0); Alkaline Phosphatase 68 U/L (46-116); Anion Gap 4.6 mmol/L (3-11); BUN 16 mg/dL (7-18); CO2 29.4 mmol/L (21.0-32.0); CREATININE 0.8 mg/dL (0.70-1.30); Calcium 9.5 mg/dL (8.5-10.1); Chloride 102 mmol/L (98-107); Estimated GFR 93.45 (mL/min/1.73m2); Glucose 107 mg/dL (74-106); Potassium 4.5 mmol/L (3.5-5.1); Sodium 136 mmol/L (136-145); Total Protein 7.5 g/dL (6.4-8.2)
== END 2024-05-23 01:56 | disposition home or self-care (01) ==
PROVIDERS: PCP Nurse Practitioner Family; Visit Provider Nurse Practitioner Family
DX: D69.6 Thrombocytopenia, unspecified (principal)
CPT/HCPCS: 36415; 80053; 85025

== ENCOUNTER 2024-06-20 02:56 | Outpatient (CLI) | payer MEDICARE, OTHER, SELFPAY ==
[2024-06-20 12:19] LABS: Absolute Basophil Count 0.04 10^3/uL (0.0-0.2); Absolute Eosinophil Count 0.12 10^3/uL (0.0-0.7); Absolute Monocyte Count 0.65 10^3/uL (0.1-0.8); Absolute Neutrophil Count 5.09 10^3/uL (1.2-6.7); Basophils % 0.6 %; Eosinophils % 1.7 %; HGB 15.4 g/dL (13.5-17.5); Immature Grans % 1.4 %; Lymphocytes % 15.5 %; MCH 30.3 pg (27.0-33.0); MCHC 33.5 % (32.0-36.0); MCV 90 fL (80-95); Monocytes % 9.2 %; Neutrophils % 71.6 %; RBC 5.09 10^6/uL (4.36-5.78); RDW 12.9 % (11.8-14.1); RDW-SD 42.8 fL
[2024-06-20 12:42] LABS: Platelet Count 89 10^3/uL (130-400)
[2024-06-20 12:46] LABS: ALT 18 U/L (16-63); AST 20 U/L (15-37); Albumin 3.8 g/dL (3.4-5.0); Alkaline Phosphatase 68 U/L (46-116); Anion Gap 6.6 mmol/L (3-11); BUN 16 mg/dL (7-18); Bilirubin, Total 0.41 mg/dL (0.2-1.0); CO2 29.4 mmol/L (21.0-32.0); Calcium 9.1 mg/dL (8.5-10.1); Chloride 105 mmol/L (98-107); Estimated GFR 79.47 (mL/min/1.73m2); Glucose 181 mg/dL (74-106); Potassium 4.6 mmol/L (3.5-5.1); Sodium 141 mmol/L (136-145); Total Protein 7.2 g/dL (6.4-8.2)
== END 2024-06-20 02:57 | disposition home or self-care (01) ==
PROVIDERS: PCP Nurse Practitioner Family; Visit Provider Nurse Practitioner Family
DX: D69.6 Thrombocytopenia, unspecified (principal)
CPT/HCPCS: 36415; 80053; 85025

== ENCOUNTER → 2024-07-11 12:55 | Outpatient (BNVA) | payer MEDICARE, OTHER, SELFPAY | PROVIDERS: PCP Nurse Practitioner Family; Referring Provider Nurse Practitioner Family; Visit Provider Physical Therapy Assistant | DX: Z12.11 Encounter for screening for malignant neoplasm of colon (principal) ==

== ENCOUNTER 2024-07-24 02:16 | Outpatient (CLI) | payer MEDICARE, OTHER, SELFPAY ==
[2024-07-24 09:06] LABS: Abs Immature Grans 0.23 10^3/uL (0.0-0.06); Absolute Basophil Count 0.09 10^3/uL (0.0-0.2); Absolute Eosinophil Count 0.16 10^3/uL (0.0-0.7); Absolute Lymphocyte Count 1.09 10^3/uL (1.2-3.4); Absolute Monocyte Count 0.69 10^3/uL (0.1-0.8); Absolute Neutrophil Count 4.47 10^3/uL (1.2-6.7); Basophils % 1.3 %; Eosinophils % 2.4 %; HCT 46.5 % (40.0-50.0); HGB 15.5 g/dL (13.5-17.5); Immature Grans % 3.4 %; Lymphocytes % 16.2 %; MCHC 33.3 % (32.0-36.0); MCV 90 fL (80-95); Monocytes % 10.3 %; Neutrophils % 66.4 %; RBC 5.16 10^6/uL (4.36-5.78); RDW 13.1 % (11.8-14.1); RDW-SD 43.2 fL; WBC 6.73 10^3/uL (4.4-10.8)
[2024-07-24 09:20] LABS: ALT 17 U/L (16-63); AST 20 U/L (15-37); Alkaline Phosphatase 71 U/L (46-116); BUN 15 mg/dL (7-18); Bilirubin, Total 0.43 mg/dL (0.2-1.0); CREATININE 0.9 mg/dL (0.70-1.30); Calcium 9.2 mg/dL (8.5-10.1); Chloride 105 mmol/L (98-107); Estimated GFR 90.18 (mL/min/1.73m2); Glucose 100 mg/dL (74-106); Potassium 4.4 mmol/L (3.5-5.1); Sodium 140 mmol/L (136-145); Total Protein 7.3 g/dL (6.4-8.2)
[2024-07-24 09:33] LABS: Diff Comment PLT Morph Reviewed; Platelet Count 86 10^3/uL (130-400); RBC Morphology Normal
== END 2024-07-24 02:17 | disposition home or self-care (01) ==
PROVIDERS: PCP Nurse Practitioner Family; Visit Provider Nurse Practitioner Family
DX: D69.6 Thrombocytopenia, unspecified (principal)
CPT/HCPCS: 36415; 80053; 85025

== ENCOUNTER 2024-08-09 07:47 | Day surgery (SDC) | payer MEDICARE, OTHER, SELFPAY ==
[2024-08-09 08:28] VITALS: BP 142/79; PULSE 64; RESP 16; TEMP 36.7; O2SAT 98
[2024-08-09] MEDS: Normal Saline 1,000 ML 30 ML IV (08:45)
--- NOTE | 2024-08-09 09:08 | ANES.PREOP_ITS ---
General Info Date of Service Date Performed: 08/09/24 Height: 5 ft 8 in Weight: 79.6 kg Body Mass Index (BMI): 26.6 Surgical Procedure: Operation Date: 08/09/24 09:05 Proposed Procedure Side Surgeon lb Cárdenas, Meds Allergies and Home Medications Allergies Allergy/AdvReac Type Severity Reaction Status Date / Time latex AdvReac Unknown rash Verified 08/09/24 08:22 Home Medication ?Medication ?Instructions ?Recorded avatrombopag 20 mg tablet 20 mg PO .COMPLEX 04/15/24 prednisone 1 mg tablet 3 mg PO DAILY 04/15/24 bisacodyl 5 mg tablet,delayed 5 mg PO ONCE #4 tabs 07/11/24 release (Dulcolax (bisacodyl)) polyethylene glycol 3350 17 17 g PO ONCE #238 grams 07/11/24 gram/dose oral powder Current Visit Medications: Current Medications Generic Name Dose Route Start Last Admin Trade Name Freq PRN Reason Stop Dose Admin Hyoscyamine Sulfate 0.125 mg 08/09/24 11:59 Hyoscyamine 0.125 Mg Sl/Oral/Chew SL 09/08/24 11:58 DIRECTED PRN Sodium Chloride 1,000 mls @ 30 mls/hr 08/09/24 08:15 08/09/24 08:45 Saline 1000ml Bag IV 09/08/24 08:14 30 mls/hr INFUSION KARELY Administration IV Miscellaneous Supplies 1 each 08/09/24 06:00 Iv Access IV 09/07/24 23:59 DIRECTED KARELY Ondansetron HCl 4 mg 08/09/24 11:59 Ondansetron 4 Mg/2 Ml Vial IVP 09/08/24 11:58 Q4H PRN PRN Nausea / Vomiting Sodium Chloride 0 ml 08/09/24 06:00 Normal Saline Flush 10 Ml Syr IV 09/07/24 23:59 PRN PRN Sodium Chloride 0 ml 08/09/24 06:00 Normal Saline 10 Ml Vial IJ 09/07/24 23:59 DIRECTED PRN Sterile Water 0 ml 08/09/24 06:00 Water,Injection,Sterile 10 Ml Vial IJ 09/07/24 23:59 DIRECTED PRN PFSH Medical History Medical History Hyperlipidemia Seronegative rheumatoid arthritis Vitamin deficiency Nummular dermatitis Enlarged prostate On prednisone therapy Seasonal allergies Chronic ITP (idiopathic thrombocytopenia) heme-onc Disorder of patella left patella surgery to try and repair broken piece. It was removed instead. 2007? Carpal tunnel syndrome, bilateral Rhinitis Insomnia Osteoarthritis Medical History Comments:: pt. reports last colonoscropy he had a hard time waking up and felt oozy Surgical History Surgical History Hx of colonoscopy H/O right inguinal hernia repair (~2019) History of carpal tunnel release left 07/2018 H/O shoulder surgery Left rotator cuff, partial cap placed 2009 Tobacco Smoking/Tobacco Use Status: Never Alcohol Alcohol Intake: never Substance Use Substance use: Never Substance use type: does not use Vital Signs and Lab Results Vital Signs Most Recent Vital Signs in EMR: Most Recent Vital Signs Temp Pulse Resp BP Pulse Ox 36.7 C 64 16 142/79 H 98 08/09/24 08:28 08/09/24 08:28 08/09/24 08:28 08/09/24 08:28 08/09/24 08:28 Lab Results Blood Type / Crossmatch: No Data to Display Complete Blood Count: White Blood Count 6.73 10^3/uL (4.4-10.8) 07/24/24 09:00 Red Blood Count 5.16 10^6/uL (4.36-5.78) 07/24/24 09:00 Hemoglobin 15.5 g/dL (13.5-17.5) 07/24/24 09:00 Hematocrit 46.5 % (40.0-50.0) 07/24/24 09:00 Platelet Count 86 10^3/uL (130-400) L 07/24/24 09:00 Complete Metabolic Panel: Sodium 140 mmol/L (136-145) 07/24/24 09:00 Potassium 4.4 mmol/L (3.5-5.1) 07/24/24 09:00 Chloride 105 mmol/L (98-107) 07/24/24 09:00 Carbon Dioxide 27.0 mmol/L (21.0-32.0) 07/24/24 09:00 BUN 15 mg/dL (7-18) 07/24/24 09:00 Creatinine 0.9 mg/dL (0.70-1.30) 07/24/24 09:00 Est GFR (CKD-EPI 2020) 90.18 (mL/min/1.73m2) 07/24/24 09:00 Calcium 9.2 mg/dL (8.5-10.1) 07/24/24 09:00 Albumin 4.0 g/dL (3.4-5.0) 07/24/24 09:00 Glucose 100 mg/dL (74-106) 07/24/24 09:00 Liver Function Panel: Alanine Aminotransferase (ALT/SGPT) 17 U/L (16-63) 07/24/24 09: 00 Aspartate Amino Transf (AST/SGOT) 20 U/L (15-37) 07/24/24 09:00 Coagulation Panel: No Data to Display Cardiac Panel: No Data to Display Arterial Blood Gas: No Data to Display Venous Blood Gas: No Data to Display Pancreas Panel: No Data to Display Thyroid Panel: No Data to Display Infectious Disease: No Data to Display Blood Cultures: No Data to Display Toxicology Panel: No Data to Display Anesthesia Assessment and Plan Anesthesia History Personal History: Other Family History: No Family History of Anesthesia Complications Exercise Tolerance Exercise Tolerance: Metabolic Equivalents>4 Pertinent Negatives Pertinent Negatives: No Major Cardiovascular Symptoms or Complaints and No Major Pulmonary Symptoms or Complaints Cardiac & Pulmonary Exam Cardiac Exam: Normal S1/S2 Heart Sounds Pulmonary Exam: Clear Bilateral Breath Sounds Implantable Cardiac Device Does patient have a Pacemaker or an ICD?: No Airway Exam Known Difficult Airway: No Mallampati Class: 3 Mouth Opening: Normal (> 3cm) Thyromental Distance: Greater than 3 cm Neck Range of Motion: Full ROM Neck Circumference: Normal Teeth Condition: Normal Dentition ASA Classification ASA Score: ASA 3 Emergency Case?: No NPO Status NPO Status: NPO Clears >2 hours, Solids >8 hours Anesthesia Plan Resuscitation Status: Full Code Anesthesia Technique: General Anesthesia Airway Planned: Natural Airway Monitors Used: Standard Monitors Preoperative Comments:: 73 y/o male with history of HLD, chronic ITP and insomnia presents for colonoscopy screening.
[2024-08-09 09:50] VITALS: BMI 26.6
--- NOTE | 2024-08-09 10:11 | BOWEL_PTH ---
PATIENT: Manuel Frank LOC: [facility] U#:[id number] AGE/SX: 73/M ROOM: RE08/09/[address]: Helena Cárdenas : 1950 BED: DIS: 08/09/2024 SPEC #: [id number] RECD: 08/09/24 10:40 STATUS: ANKIT REQ #: [id number] KJ: 08/09/24 10:[address]: Helena Cárdenas DEPT: Surgical Specimen RECD BY: Analy Muller ENTERED: 08/09/24 10:40 SP TYPE: Bowel OTHR DR: Bhavna Sampson Tissues: 1 - BIOPSY BOWEL Procedures: GROSS AND MICRO LEVEL 4 Comments: [id number]
[2024-08-09 10:26] VITALS: BP 111/73; PULSE 63; RESP 18; TEMP 36.5; O2SAT 96
[2024-08-09 10:55] VITALS: BP 117/73; PULSE 62; RESP 18; TEMP 36.4; O2SAT 97
--- NOTE | 2024-08-09 11:13 | W.COLOREPORT ---
Date of service: 08/09/24 Time of Service: 11:13 Colonoscopy Report Date of procedure: 08/09/24 Pre-op diagnosis general: crc screening Post-op diagnosis procedure note: other (polyp and diverticula) Surgeon: Helena Cárdenas Anesthesia Type: General:No Airway Estimated blood loss (mL): 1 Pathology: other Complications: None Disposition: same day Prep: Miralax/Dulcolax Retraction Time: 16 Procedure Description: After informed consent was obtained, explaining risks of the procedure, including but not limits to: bleeding, infections, complications of anesthesia, perforations (which may require antibiotics and /or surgery and stay in the hospital), and abdominal pain/cramping. The patient was taken to the procedure room and placed in a left decubitous position. Monitors were applied and a time out was done. The patients name, date of , procedure, allergies to medications and metal in their body was reviewed. The patient was then sedated. Once sedated and comfortable a rectal exam was done. External exam was normal. Internal exam revealed a normal sphincter tone and no palpable masses. The prostate no palpable masses. The previously lubricated Olympus scope was then introduced (see RN notes for scope number) and retrofelexed. No internal hemorrhoids were identified. The scope was then advanced to the cecum without difficulty. The TI and appendiceal orifice were identified. The scope was then slowly retracted over 16 minutes back into the rectum. Polyps: A flat, .5cm polyp was found in the cecum. This was removed with a cold biting forceps. All of the specimen was retrieved. A clip is placed over this area due to pt chronic steriods and thrombocytopenia. This will be sent to pathology. There is no bleeding noted from the polypectomy site. Diverticula: pt had a moderate amount of small mouthed diverticula in the sigmoid colon. There were no signs of active bleeding or infection. The mucosa is pink and healthy w/ a normal vascular pattern. The scope was removed, and the patient was woken up and taken back to Same day surgery in stable condition. The patient tolerated the procedure well and there were no immediate complications. Follow up: The patient does not require any further retine screening CE's, unless they develop changes in bowel habits or other new gastrointestinal complaints. [place] Bowel Prep [place] Bowel Prep Right Colon: 3 Left Colon: 3 Transverse Colon: 3 Total Score: 9
--- NOTE | 2024-08-09 11:13 | W.ANESPOSTOP ---
Postoperative Evaluation Date, Time and Location Date Performed: 08/09/24 Time Performed: 10:55 Patient Location: Day Surgery Unit Vital Signs Most Recent Imported Vital Signs: Most Recent Vital Signs Temp Pulse Resp BP Pulse Ox 36.4 C L 62 18 117/73 97 08/09/24 10:55 08/09/24 10:55 08/09/24 10:55 08/09/24 10:55 08/09/24 10:55 Pain Score Most Recent Pain Score: Most Recent Pain Score Pain Level 0 08/09/24 10:55 Assessment Mental Status: Awake (Alert & Oriented to Patient Baseline) Airway and Respiratory Function: Patent airway with normal (patient baseline) respiratory exam Cardiovascular Function: Hemodynamically Stable Hydration Status: Adequately Hydrated Nausea & Vomiting: No Nausea or Vomiting Pain: Pt. Denies Any Pain Peripheral Nerve Block: Patient did not receive a nerve block
--- NOTE | 2024-08-09 11:14 | PDOC.DSDIS_ITS ---
Date of service: 08/09/24 Discharge Plan Disposition Patient Disposition: Home Condition: Good Discharge Details Attending Provider: Helena Cárdenas Primary Care Provider: Bhavna Sampson Home Meds and New Rx's Prescriptions: Continued avatrombopag 20 mg tablet 20 mg PO .COMPLEX Rx Instructions: 20 mg orally Monday and prednisone 1 mg tablet 3 mg PO DAILY Discontinued bisacodyl [Dulcolax (bisacodyl)] 5 mg tablet,delayed release (DR/EC) 5 mg PO ONCE Qty: 4 0RF Rx Instructions: Take per colonoscopy instructions provided by ordering providers office polyethylene glycol 3350 17 gram/dose powder 17 g PO ONCE Qty: 238 0RF Rx Instructions: Take per colonoscopy instructions provided by ordering providers office Discharge Instructions Additional Instructions: DSU Colonoscopy Post- Op Instructions Instructions for Everyone who is given Anesthesia: For your safety, please do the following for the next twenty-four (24) hours: *Do Not operate a motor vehicle (car, truck, motorcycle, etc.) *Do Not drink alcoholic beverages or use any recreational drugs for the first 24 hours or while taking pain medications. The medications in your body may have a reaction that can be dangerous. *Do Not make any important decisions or sign any important papers. Findings: Small polyp Diverticula-make sure you are moving your bowels on a regular basis and not straining. If you find you are having with problems with constipation or straining than it is recommended you start a fiber product such as Metamucil or Citrucel. Follow up: 1. No lifting over 20 pounds or strenuous activity for the first 24 hours after your procedure. After 24 hours there are no restrictions on your activity but you may feel fatigued for a few days. 2. After you arrive home you may have a light meal and return to your normal diet as you can tolerate it without feeling sick to your stomach. 3. You may have a bloated, gaseous feeling in your belly (abdomen) after a colonoscopy. Passing gas and belching will help. Walking or lying down on your left side with your knees flexed may relieve the discomfort. Call the office at [phone] (Office) or [phone] (Hospital) right away if you notice any of the following: a.Vomiting of blood or ?coffee ground stools?. b.Rectal bleeding 1Tbsp, blood clots or continuous bleeding. c.Severe belly (abdominal) pain. d.A hard distended belly (abdomen) and an inability to pass gas. 4. Please don?t expect to have a normal BM (bowel movement) for 2-3 days after your procedure. 5. If there are questions regarding the findings of your procedure, please contact your doctor 6. If you are unable to contact your doctor with a problem, contact the hospital at [phone]. 7. Continue all your regular medications unless directed otherwise. I understand the above instructions and have no questions. Signature of Patient or Adult Escort Name of Responsible Adult Escort Signature of Nurse Date/Time Activity:: See above Diet:: See above Discharge Orders Discharge Orders: Discharge Order (Routine); Ordered 08/09/24 Ordered By: Helena Cárdenas DS: Diagnosis Discharge Diagnosis (1) Adenomatous polyps: Status: Acute Asessment and Plan: The patient is seen and examined after their colonoscopy.? The patient has been able to pass gas.? They are not having abdominal pain.? They have been able to tolerate liquids and a snack.? They do not have any nausea or vomiting.? They are not having any chest pain or shortness of breath.??? They are not having any rectal bleeding. Their vital signs have been stable-see nursing notes. We discussed findings during their colonoscopy, and any biopsies that were done/polyps that were removed. The patient will be sent a letter with any biopsy results, and when to repeat the colonoscopy.-see discharge instructions. Patient was given explicit instructions to follow-up regarding colonoscopy-refer to discharge instructions.? We reviewed resumption of medications. Patient verbalized understanding and discharged in stable and satisfactory condition- See nursing notes. (2) Diverticula of colon: Status: Acute (3) Hyperlipidemia: (4) Chronic ITP (idiopathic thrombocytopenia): (5) On prednisone therapy: (6) Seronegative rheumatoid arthritis:
== END 2024-08-09 11:25 | disposition home or self-care (01) ==
PROVIDERS: PCP Nurse Practitioner Family; Visit Provider Surgery
PROC: 0DJD8ZZ Inspection of Lower Intestinal Tract, Via Natural or Artificial Opening Endoscopic (ICD-10-PCS; CPT 45378; principal; 2024-08-09 09:00)
DX: K57.30 Diverticulosis of large intestine without perforation or abscess without bleeding (principal); K63.89 Other specified diseases of intestine; Z12.11 Encounter for screening for malignant neoplasm of colon
CPT/HCPCS: 45380; 88305; J2003; J2704

== ENCOUNTER 2025-02-05 03:06 | Outpatient (CLI) | payer MEDICARE, SELFPAY ==
[2025-02-05 13:11] LABS: Abs Immature Grans 0.13 10^3/uL (0.0-0.06); Absolute Basophil Count 0.05 10^3/uL (0.0-0.2); Absolute Eosinophil Count 0.19 10^3/uL (0.0-0.7); Absolute Lymphocyte Count 1.97 10^3/uL (1.2-3.4); Absolute Monocyte Count 0.86 10^3/uL (0.1-0.8); Basophils % 0.6 %; Eosinophils % 2.3 %; HCT 46.2 % (40.0-50.0); HGB 15.5 g/dL (13.5-17.5); Immature Grans % 1.5 %; Lymphocytes % 23.5 %; MCH 29.5 pg (27.0-33.0); MCHC 33.5 % (32.0-36.0); MCV 88 fL (80-95); Monocytes % 10.2 %; Neutrophils % 61.9 %; RBC 5.25 10^6/uL (4.36-5.78); RDW 12.7 % (11.8-14.1)
[2025-02-05 13:31] LABS: ALT 26 U/L (16-63); AST 19 U/L (15-37); Alkaline Phosphatase 66 U/L (46-116); Anion Gap 8.2 mmol/L (3-11); BUN 12 mg/dL (7-18); Bilirubin, Total 0.4 mg/dL (0.2-1.0); CO2 29.8 mmol/L (21.0-32.0); CREATININE 0.8 mg/dL (0.70-1.30); Calcium 9.2 mg/dL (8.5-10.1); Chloride 104 mmol/L (98-107); Estimated GFR 92.87 (mL/min/1.73m2); Glucose 84 mg/dL (74-106); Potassium 4.2 mmol/L (3.5-5.1); Sodium 142 mmol/L (136-145); Total Protein 7.2 g/dL (6.4-8.2)
[2025-02-05 13:47] LABS: Platelet Count 69 10^3/uL (130-400)
[2025-02-05 13:48] LABS: MPV 12.7 fL (8.0-11.0)
== END 2025-02-05 03:07 | disposition home or self-care (01) ==
PROVIDERS: PCP Nurse Practitioner Family; Visit Provider Nurse Practitioner Family
DX: D69.6 Thrombocytopenia, unspecified (principal)
CPT/HCPCS: 36415; 80053; 85025

== ENCOUNTER 2025-04-09 03:01 | Outpatient (CLI) | payer MEDICARE, SELFPAY ==
[2025-04-09 09:07] LABS: Abs Immature Grans 0.10 10^3/uL (0.0-0.06); HCT 45.1 % (40.0-50.0); HGB 15.1 g/dL (13.5-17.5); Immature Grans % 1.5 %; MCH 29.8 pg (27.0-33.0); MCHC 33.5 % (32.0-36.0); MCV 89 fL (80-95); MPV 12.6 fL (8.0-11.0); RBC 5.07 10^6/uL (4.36-5.78); RDW 12.7 % (11.8-14.1); RDW-SD 41.1 fL; WBC 6.52 10^3/uL (4.4-10.8)
[2025-04-09 09:26] LABS: ALT 19 U/L (16-63); AST 19 U/L (15-37); Albumin 4.0 g/dL (3.4-5.0); Alkaline Phosphatase 66 U/L (46-116); Anion Gap 5.8 mmol/L (3-11); BUN 12 mg/dL (7-18); Bilirubin, Total 0.5 mg/dL (0.2-1.0); CO2 31.2 mmol/L (21.0-32.0); Calcium 9.5 mg/dL (8.5-10.1); Chloride 102 mmol/L (98-107); Estimated GFR 92.87 (mL/min/1.73m2); Glucose 101 mg/dL (74-106); Potassium 4.8 mmol/L (3.5-5.1); Sodium 139 mmol/L (136-145); Total Protein 7.3 g/dL (6.4-8.2)
[2025-04-09 09:35] LABS: Platelet Count 89 10^3/uL (130-400)
[2025-04-09 09:36] LABS: RBC Morphology Normal
== END 2025-04-09 03:02 | disposition home or self-care (01) ==
PROVIDERS: PCP Nurse Practitioner Family; Visit Provider Nurse Practitioner Family
DX: D69.6 Thrombocytopenia, unspecified (principal)
CPT/HCPCS: 36415; 80053; 85025

== ENCOUNTER 2025-06-11 01:34 | Outpatient (CLI) | payer MEDICARE, SELFPAY ==
[2025-06-11 09:32] LABS: Abs Immature Grans 0.12 10^3/uL (0.0-0.06); HCT 45.7 % (40.0-50.0); HGB 15.4 g/dL (13.5-17.5); Immature Grans % 1.8 %; MCH 29.6 pg (27.0-33.0); MCHC 33.7 % (32.0-36.0); MCV 88 fL (80-95); MPV 13.9 fL (8.0-11.0); RBC 5.20 10^6/uL (4.36-5.78); RDW 12.8 % (11.8-14.1); RDW-SD 41.3 fL; WBC 6.85 10^3/uL (4.4-10.8)
[2025-06-11 10:29] LABS: Platelet Count 51 10^3/uL (130-400); RBC Morphology Normal
[2025-06-11 10:39] LABS: ALT 16 U/L (16-63); AST 17 U/L (15-37); Albumin 4.0 g/dL (3.4-5.0); Alkaline Phosphatase 65 U/L (46-116); Anion Gap 6.3 mmol/L (3-11); BUN 14 mg/dL (7-18); Bilirubin, Total 0.5 mg/dL (0.2-1.0); CO2 30.7 mmol/L (21.0-32.0); Calcium 9.4 mg/dL (8.5-10.1); Chloride 101 mmol/L (98-107); Estimated GFR 92.87 (mL/min/1.73m2); Glucose 88 mg/dL (74-106); Potassium 4.4 mmol/L (3.5-5.1); Sodium 138 mmol/L (136-145); Total Protein 7.6 g/dL (6.4-8.2)
== END 2025-06-11 01:35 | disposition home or self-care (01) ==
LOC: LBO 01:34
PROVIDERS: PCP Nurse Practitioner Family; Visit Provider Internal Medicine Hematology & Oncology
DX: D69.6 Thrombocytopenia, unspecified (principal)
CPT/HCPCS: 36415; 80053; 85025

== ENCOUNTER 2025-06-18 01:58 | Outpatient (CLI) | payer MEDICARE, SELFPAY ==
[2025-06-18 08:51] LABS: Abs Immature Grans 0.12 10^3/uL (0.0-0.06); HCT 44.3 % (40.0-50.0); HGB 14.8 g/dL (13.5-17.5); Immature Grans % 1.7 %; MCH 29.2 pg (27.0-33.0); MCHC 33.4 % (32.0-36.0); MCV 88 fL (80-95); RBC 5.06 10^6/uL (4.36-5.78); RDW 12.9 % (11.8-14.1); RDW-SD 41.1 fL; WBC 7.08 10^3/uL (4.4-10.8)
[2025-06-18 09:35] LABS: ALT 18 U/L (16-63); AST 19 U/L (15-37); Albumin 3.8 g/dL (3.4-5.0); Alkaline Phosphatase 67 U/L (46-116); Anion Gap 6.1 mmol/L (3-11); BUN 12 mg/dL (7-18); Bilirubin, Total 0.5 mg/dL (0.2-1.0); CO2 29.9 mmol/L (21.0-32.0); Calcium 9.2 mg/dL (8.5-10.1); Chloride 103 mmol/L (98-107); Estimated GFR 92.87 (mL/min/1.73m2); Glucose 79 mg/dL (74-106); Potassium 4.4 mmol/L (3.5-5.1); Sodium 139 mmol/L (136-145); Total Protein 7.2 g/dL (6.4-8.2)
[2025-06-18 10:18] LABS: Platelet Count 49 10^3/uL (130-400); RBC Morphology Normal
== END 2025-06-18 01:59 | disposition home or self-care (01) ==
PROVIDERS: PCP Nurse Practitioner Family; Visit Provider Nurse Practitioner Family
DX: D69.6 Thrombocytopenia, unspecified (principal)
CPT/HCPCS: 36415; 80053; 85025

== ENCOUNTER 2025-06-25 03:21 | Outpatient (CLI) | payer MEDICARE, SELFPAY ==
[2025-06-25 09:22] LABS: Abs Immature Grans 0.07 10^3/uL (0.0-0.06); HCT 45.7 % (40.0-50.0); HGB 15.2 g/dL (13.5-17.5); Immature Grans % 1.2 %; MCH 29.3 pg (27.0-33.0); MCHC 33.3 % (32.0-36.0); MCV 88 fL (80-95); MPV 13.5 fL (8.0-11.0); RBC 5.18 10^6/uL (4.36-5.78); RDW 12.9 % (11.8-14.1); RDW-SD 42.3 fL; WBC 5.98 10^3/uL (4.4-10.8)
[2025-06-25 09:38] LABS: ALT 18 U/L (16-63); AST 17 U/L (15-37); Albumin 3.9 g/dL (3.4-5.0); Alkaline Phosphatase 67 U/L (46-116); Anion Gap 4.0 mmol/L (3-11); BUN 12 mg/dL (7-18); Bilirubin, Total 0.6 mg/dL (0.2-1.0); CO2 32.0 mmol/L (21.0-32.0); Calcium 9.1 mg/dL (8.5-10.1); Chloride 102 mmol/L (98-107); Glucose 87 mg/dL (74-106); Potassium 4.4 mmol/L (3.5-5.1); Sodium 138 mmol/L (136-145); Total Protein 7.4 g/dL (6.4-8.2)
[2025-06-25 09:41] LABS: Platelet Count 44 10^3/uL (130-400); RBC Morphology Normal
== END 2025-06-25 03:22 | disposition home or self-care (01) ==
PROVIDERS: PCP Nurse Practitioner Family; Visit Provider Nurse Practitioner Family
DX: D69.6 Thrombocytopenia, unspecified (principal)
CPT/HCPCS: 36415; 80053; 85025

== ENCOUNTER 2025-07-02 01:55 | Outpatient (CLI) | payer MEDICARE, SELFPAY ==
[2025-07-02 08:19] LABS: Abs Immature Grans 0.10 10^3/uL (0.0-0.06); HCT 45.4 % (40.0-50.0); HGB 15.6 g/dL (13.5-17.5); Immature Grans % 1.5 %; MCH 29.7 pg (27.0-33.0); MCHC 34.4 % (32.0-36.0); MCV 87 fL (80-95); Platelet Count 42 10^3/uL (130-400); RBC 5.25 10^6/uL (4.36-5.78); RDW 13.0 % (11.8-14.1); RDW-SD 40.6 fL; WBC 6.80 10^3/uL (4.4-10.8)
[2025-07-02 08:33] LABS: ALT 12 U/L (10-49); AST 22 U/L (<34); Albumin 4.5 g/dL (3.4-5.0); Alkaline Phosphatase 64 U/L (46-116); Anion Gap 6.5 mmol/L (3-11); BUN 14 mg/dL (9-23); Bilirubin, Total 0.60 mg/dL (0.2-1.2); CO2 27.5 mmol/L (20.0-31.0); Calcium 9.3 mg/dL (8.3-10.6); Chloride 106 mmol/L (98-107); Glucose 80 mg/dL (74-106); Potassium 4.6 mmol/L (3.5-5.1); Sodium 140 mmol/L (136-145); Total Protein 7.3 g/dL (5.7-8.2)
== END 2025-07-02 01:56 | disposition home or self-care (01) ==
PROVIDERS: PCP Nurse Practitioner Family; Visit Provider Nurse Practitioner Family
DX: Z79.899 Other long term (current) drug therapy (principal); D69.6 Thrombocytopenia, unspecified; M06.00 Rheumatoid arthritis without rheumatoid factor, unspecified site
CPT/HCPCS: 36415; 80053; 85025

== ENCOUNTER 2025-07-09 03:31 | Outpatient (CLI) | payer MEDICARE, SELFPAY ==
[2025-07-09 09:29] LABS: Abs Immature Grans 0.08 10^3/uL (0.0-0.06); HCT 44.2 % (40.0-50.0); HGB 15.0 g/dL (13.5-17.5); Immature Grans % 1.5 %; MCH 29.5 pg (27.0-33.0); MCHC 33.9 % (32.0-36.0); MCV 87 fL (80-95); RBC 5.08 10^6/uL (4.36-5.78); RDW 13.0 % (11.8-14.1); RDW-SD 41.3 fL; WBC 5.48 10^3/uL (4.4-10.8)
[2025-07-09 09:30] LABS: Platelet Count 49 10^3/uL (130-400)
== END 2025-07-09 03:32 | disposition home or self-care (01) ==
LOC: LBO 03:31
PROVIDERS: Nurse Practitioner Family; PCP Nurse Practitioner Family; Visit Provider Internal Medicine Hematology & Oncology
DX: D69.6 Thrombocytopenia, unspecified (principal)
CPT/HCPCS: 36415; 85025

== ENCOUNTER 2025-07-23 01:29 | Outpatient (CLI) | payer MEDICARE, SELFPAY ==
[2025-07-23 08:04] LABS: Abs Immature Grans 0.14 10^3/uL (0.0-0.06); HCT 45.7 % (40.0-50.0); HGB 15.3 g/dL (13.5-17.5); Immature Grans % 2.1 %; MCH 29.4 pg (27.0-33.0); MCHC 33.5 % (32.0-36.0); MCV 88 fL (80-95); RBC 5.20 10^6/uL (4.36-5.78); RDW 12.9 % (11.8-14.1); RDW-SD 41.5 fL; WBC 6.55 10^3/uL (4.4-10.8)
[2025-07-23 08:39] LABS: Platelet Count 39 10^3/uL (130-400)
== END 2025-07-23 01:30 | disposition home or self-care (01) ==
PROVIDERS: PCP Nurse Practitioner Family; Visit Provider Nurse Practitioner Family
DX: D69.6 Thrombocytopenia, unspecified (principal)
CPT/HCPCS: 36415; 80053; 85025

== ENCOUNTER 2025-08-06 00:50 | Outpatient (CLI) | payer MEDICARE, SELFPAY ==
[2025-08-06 09:39] LABS: Abs Immature Grans 0.11 10^3/uL (0.0-0.06); HCT 45.6 % (40.0-50.0); HGB 15.4 g/dL (13.5-17.5); Immature Grans % 1.6 %; MCH 29.6 pg (27.0-33.0); MCHC 33.8 % (32.0-36.0); MCV 88 fL (80-95); RBC 5.20 10^6/uL (4.36-5.78); RDW 12.9 % (11.8-14.1); RDW-SD 41.8 fL; WBC 6.83 10^3/uL (4.4-10.8)
[2025-08-06 10:00] LABS: Platelet Count 58 10^3/uL (130-400)
== END 2025-08-06 00:51 | disposition home or self-care (01) ==
LOC: LBO 00:50
PROVIDERS: PCP Nurse Practitioner Family; Visit Provider Nurse Practitioner Family
DX: D69.6 Thrombocytopenia, unspecified (principal)
CPT/HCPCS: 36415; 80053; 85025